=== PATIENT | male | born 2000 ===

== ENCOUNTER 2021-11-10 19:38 | Emergency (ER) | payer SELFPAY ==
[~2021-11-10] VITALS: Ht 162.6 cm; Wt 68.2 kg
[2021-11-10 19:54] VITALS: BP 161/90; PULSE 70; TEMP 98.5
[2021-11-10] MEDS ORDERED: ZOVIRAX400 MG PO (20:30)
== END 2021-11-10 20:53 | disposition home or self-care (01) ==
LOC: COL.ER 19:38
DX: K12.1 Other forms of stomatitis (principal); F17.290 Nicotine dependence, other tobacco product, uncomplicated; Z28.310 Unvaccinated for COVID-19